=== PATIENT | female | born 1995 | race Hispanic/Latino ===

== ENCOUNTER 2023-05-14 14:57 | Emergency (ER) | payer OTHER ==
[~2023-05-14] VITALS: Ht 152.4 cm; Wt 115.2 kg
[2023-05-14 15:08] VITALS: O2SAT 98
[2023-05-14] MEDS ORDERED: HYDROCODONE/APAP 5MG-325MG TAB ONE (16:08)
[2023-05-14] MEDS ORDERED: KETOROLAC TROME10 MG PO (16:15)
[2023-05-14] MEDS ORDERED: HYDROCODONE/APAP 5MG-325MG TAB PO ONE (16:15)
[2023-05-14] MEDS ORDERED: CYCLOBENZAPRINE5 MG PO (16:17)
== END 2023-05-14 16:38 | disposition home or self-care (01) ==
LOC: FSED 15:01
DX: M54.6 Pain in thoracic spine (principal); M54.50 Low back pain, unspecified; W18.39XA Other fall on same level, initial encounter; Y92.89 Other specified places as the place of occurrence of the external cause; N64.4 Mastodynia; Z98.84 Bariatric surgery status
CPT/HCPCS: 72072; 72100; 99283